=== PATIENT | male | born 1980 | race Caucasian/White ===

== ENCOUNTER 2020-11-27 23:52 | Emergency (ER) | payer OTHER ==
[~2020-11-27] VITALS: Ht 170.2 cm; Wt 72.7 kg
[2020-11-28 00:11] VITALS: BP 128/62
--- NOTE | 2020-11-28 00:15 | NUR ---
gave pt warm blankets, sandwich, applesauce and juice.
== END 2020-11-28 00:24 | disposition home or self-care (01) ==
LOC: ER 23:53
DX: F41.1 Generalized anxiety disorder (principal); R07.89 Other chest pain; Z59.0 Homelessness
CPT/HCPCS: 93005; 99283